=== PATIENT | male | born 1990 | race American Indian/Alaskan Native ===

== ENCOUNTER 2023-01-02 10:20 | Day surgery (SDC) | payer OTHER ==
[~2023-01-02] VITALS: Ht 185.4 cm; Wt 95.0 kg
--- NOTE | ~2023-01-02 | OR ---
[facility] [address], [place] [address] Draft DATE OF OPERATION: 01/02/2023 SURGEON: Reji Roman MD PREOPERATIVE DIAGNOSES: 1. Chronic frontal sinusitis. 2. Chronic ethmoiditis. 3. Chronic sphenoiditis. 4. Chronic maxillary sinusitis. 5. Deviated nasal septum. POSTOPERATIVE DIAGNOSES: 1. Chronic frontal sinusitis. 2. Chronic ethmoiditis. 3. Chronic sphenoiditis. 4. Chronic maxillary sinusitis. 5. Deviated nasal septum. PROCEDURES: 1. Bilateral endoscopic frontal ethmoidectomy, 33086-74. 2. Nasal septoplasty, 38002. 3. Left endoscopic sphenoidotomy, 29116. 4. Bilateral endoscopic maxillary antrostomies, 93111-08. INDICATIONS: This 32-year-old gentleman has had significant sinus problems for the last 15 years with sinus headaches, recurring sinus infections and progressive nasal obstruction. He has always had a poor left nasal airway, but the right side as well as the left has become obstructed and is refractory to medical treatment including decongestants, antihistamines. He responds to antibiotics, but then it relapses. A CT scan as part of his workup demonstrated first of all a congenitally narrow nasal syndrome with overpneumatization and medialization of the maxillary adames at the expense of the nasal airway. He has a small ethmoid labyrinth, which also narrowed the frontal recess with poor aeration of the frontal sinuses and because of inflammatory disease which was seen in the sinuses, this narrowed the natural airway producing a pressure gradient which would then cause lots of headaches. The septum was deviated high to the left, which also put pressure and lateralization of the middle turbinate with congestion of the ostiomeatal units. Because the patient has decreased his quality of life and has not fared well with medical treatment, surgical treatment was deemed to greatly improve his nasal airway, decrease the sinus infections and eliminate sinus headaches or at least PATIENT NAME: MARY ALCARAZ OPERATIVE REPORT DATE OF : 86 REPORT #: [id number] PHYSICIAN: REJI ROMAN MD PCP: [facility] REPORT IS CONFIDENTIAL AND NOT TO BE RELEASED WITHOUT AUTHORIZATION [facility] [address], [place] [address] Draft make it much better. The above surgeries were indicated. PROCEDURE IN DETAIL: The patient was placed in the supine position, had an orotracheal intubation, placed under general anesthesia. Left side could not be instrumented or scope placed up and they are very far because of the septal deviation. Right side was injected with several mL of 1% lidocaine with 1:100,000 epinephrine in the uncinate process lateral wall and the anterior portion of middle turbinate. The middle turbinate was very bulky and strong and required a lot of anterior or inferior resection to get the scope up into the middle meatus better into the ethmoid sinuses. There was an accessory maxillary ostium on that right side. The backbiting forceps placed into that and the intervening bone removed between that and the natural ostium coming anteriorly. The ethmoid bulla was small and inflammatory disease, thickening was evident. This was pierced with the curette and then the dissection proceeded from anterior to posterior into the sphenoid rostrum. A 70-degree scope was used to remove the diseased ethmoid air cells going up to the frontal sinus and then with the 60-degree attachment to the Xomed microdebrider. A very nice frontal sinusotomy was performed removing diseased mucosa and some of the thin bones. Photographs were taken preop, intraoperatively and postoperatively. A piece of NasoPore was placed in the sinus labyrinth to help prevent adhesion bands between the remnant of the middle turbinate and the ethmoid architecture. The septum then had to be repaired. It was injected with a couple of mL of lidocaine, also total of 4 or 5 mL of Marcaine 0.5% with 1:200,000 epinephrine were used. The incision was made at the junction with the floor on the left side and then the caudal dissection tool was used to fashion a flap of mucosa and perichondrium, and this was lifted up clear up onto the bony septum. A Jose D knife was used to incise that cartilage and then a septal button knife used to extend it inferiorly and superiorly, then the mucoperiosteum was elevated without creating any fenestra. Another tunnel was created inferior to the large spur on the left side and the spur was isolated both bony and cartilaginous. Gaona scissors were used to resect the deviated pieces of bone superiorly on the septum and mallet and osteotome inferiorly to take the spur off. Marjan forceps were used to remove all the remnants of the deviation producing a straight septum and the flaps were based down with 4-0 gut with an SC-1 needle, and the anterior incision closed with 4-0 chromic. This opened up good airway on the left side for endoscopic manipulation. Another couple of mL of lidocaine were injected into the uncinate process, anterior edge of the middle turbinates, and the anteroinferior portion of the middle turbinate was trimmed away. Some cauterization with the suction cautery was necessary that was done mainly on the right side, where there was a good bleeder on the turbinate. The uncinate process was incised, a backbiting forceps used to remove entirely the uncinate process and this was joined up again with an accessory ostium. The ethmoid air cells were then dissected out piercing the first one with the bulla with a curette and going back to the sphenoid sinus and a trans-ethmoid sphenoidotomy was performed. Mucosa in the ragged bone was sharply resected. The patient's mucosa in large extents was very friable, PATIENT NAME: MARY ALCARAZ OPERATIVE REPORT DATE OF : 86 REPORT #: [id number] PHYSICIAN: REJI ROMAN MD PCP: [facility] REPORT IS CONFIDENTIAL AND NOT TO BE RELEASED WITHOUT AUTHORIZATION [facility] [address], [place] [address] Draft peeled off easily from the bone like ripe watermelon. The frontal recess was dissected again with a 70-degree scope and a pediatric upward Nir forceps and the 60-degree attachment on the microdebrider. More NasoPore was placed on that side to help prevent scarring. It had mupirocin ointment and it also prevent infection from foreign body either side. Estimated blood loss was about 300 mL. The patient tolerated the procedure well. There were no complications and he went to the recovery room in good condition. Reji Roman MD [facility] /[id number] Copies: ~ PATIENT NAME: MARY ALCARAZ OPERATIVE REPORT DATE OF : 86 REPORT #: [id number] PHYSICIAN: REJI ROMAN MD PCP: [facility] REPORT IS CONFIDENTIAL AND NOT TO BE RELEASED WITHOUT AUTHORIZATION
[~2023-01-02 10:20] MED LIST: COZAAR50 MG PO
--- NOTE | 2023-01-02 14:46 | NUR ---
01/02/23 1446 Frances Mckee 1443 PATIENT ARRIVES TO PACU UNRESPONSIVE TO PAIN, ORAL AIRWAY IN PLACE AND JAW THRUST TO MAINTAIN PATENT AIRWAY. RESP EVEN AND UNLABORED WITH INTERVENTION, MASK AT 10 LITERS, SATS >97%.
--- NOTE | 2023-01-02 15:29 | NUR ---
PT RESTING IN STRETCHER UPON ARRIVAL TO DAY SURGERY ROOM 6. REPORT TAKEN FROM SAMANTHA GREENE. PT ALERT AND ORIENTED. PT REPORTS PAIN 3/10 IN SINUSES. DENIES NAUSEA. PT SIPPING ORANGE JUICE AND ICE WATER AT BEDSIDE. DENIES WANTING TO EAT FOOD. THIS RN TO CALL PT'S PARTNER TO UPDATE HER. GAUZE SECURED WITH TAPE UNDER NOSTRILS APPEARS TO HAVE NO DRAINAGE. CALL LIGHT WITHIN REACH.
--- NOTE | 2023-01-02 15:36 | NUR ---
CALL PLACED TO PT'S PARTNER ARTURO, NO ANSWER. NO OPTION FOR VM.
--- NOTE | 2023-01-02 15:58 | NUR ---
TRAMADOL PRESCRIPTION CALLED INTO [facility].
--- NOTE | 2023-01-02 16:25 | NUR ---
PT RESTING IN BED UPON ARRIVAL TO ROOM. REPORTS PAIN 4/10 AND IT HAS MOVED UP TOWARDS HIS FOREHEAD AREA. DENIES WANTING PAIN MEDICATION. DENIES NAUSEA. PT ATE CRACKERS. DISCHARGE INSTRUCTIONS REVIEWED WITH PT. QUESTIONS AND CONCERNED ANSWERED. CALL LIGHT WITHIN REACH. PT TO EDGE OF BED TO PUT ON PERSONAL CLOTHING. PT TO RESTROOM WITH MINIMAL ASSISTANCE.
--- NOTE | 2023-01-02 16:50 | NUR ---
PT UP TO RESTROOM WITH MINIMAL ASSISTANCE. PT URINATED 750 ML. PT AMBULATED BACK TO BED WITH MINIMAL ASSISTANCE. MODERATE AMOUNT OF SEROSANGUINOUS DRAINAGE ON NASAL DRAINAGE PAD. CHANGED DRAINAGE PAD WITH TWO PIECES OF GAUZE AND TAPE. EXPLAINED TO PT HOW TO CHANGE DRAINAGE PAD. INSTRUCTED PT TO LAY IN BED AT 45 DEGREE ANGLE TO STOP DRAINAGE. PT COMPLAINING OF PAIN 6/10 AND REQUESTING TYLENOL. TYLENOL GIVEN. ICE WATER AT BEDSIDE. CALL LIGHT WITHIN REACH.
--- NOTE | 2023-01-02 17:13 | NUR ---
IV D/C WNL, TIP INTACT. PT DISCHARGED FROM DAY SURGERY ROOM 6 VIA WHEELCHAIR TO PERSONAL AUTOMOBILE. FATHER AND PARTNER ARTURO AT AUTOMOBILE TO [employer] PT.
== END 2023-01-02 17:00 | disposition home or self-care (01) ==
LOC: DS 10:20
PROVIDERS: ATTEND Otolaryngology
PROC: 09SM4ZZ Reposition Nasal Septum, Percutaneous Endoscopic Approach (ICD-10-PCS; 2023-01-02)
PROC: 09TU4ZZ Resection of Right Ethmoid Sinus, Percutaneous Endoscopic Approach (ICD-10-PCS; 2023-01-02)
PROC: 099R4ZZ Drainage of Left Maxillary Sinus, Percutaneous Endoscopic Approach (ICD-10-PCS; 2023-01-02)
PROC: 099Q4ZZ Drainage of Right Maxillary Sinus, Percutaneous Endoscopic Approach (ICD-10-PCS; 2023-01-02)
PROC: 09TV4ZZ Resection of Left Ethmoid Sinus, Percutaneous Endoscopic Approach (ICD-10-PCS; principal; 2023-01-02 12:00)
DX: J32.1 Chronic frontal sinusitis (principal); J32.2 Chronic ethmoidal sinusitis; J32.3 Chronic sphenoidal sinusitis; J32.0 Chronic maxillary sinusitis; J34.2 Deviated nasal septum
CPT/HCPCS: A9270; J0131; J1100; J2001; J2250; J2370; J2405; J2704; J3010; J7121